=== PATIENT | male | born 1975 | race Caucasian/White ===

== ENCOUNTER 2019-02-25 06:55 | Day surgery (SDC) | payer BC ==
[~2019-02-25 06:55] MED LIST: Buffered Lidocaine 1% SYRIN* 1 ML/SYRINGE INTRADERM ONE; Dexamethasone TAB* 4 MG PO ONE; DiMENhydriNATE IV* 50 MG/ML VIAL IV PUSH PRN; Famotidine IV* 10 MG/ML 2 ML (20 mg) IV ONE; HYDROmorphone INJ1* 1 MG/ML SYRINGE IV PRN; Lactated Ringers 1000 ML Bag* 1,000 ML IV SCH; Naloxone* 0.4 MG/ML 1 ML VIAL IV PRN; Ondansetron ODT TAB* 4 MG PO ONE; PROCHLORPERAZINE INJ 5 MG/ML 2 ML VIAL IV PRN; fentaNYL* 50 MCG/ML 2 ML VIAL (100 MCG VIAL) IV PRN; oxyCODONE TAB* 5 MG TAB PO PRN
[2019-02-25] MEDS ORDERED: ceFAZolin 2 GM PREMIX in ORs 2 GM/50 ML BAG ONE (07:45)
[2019-02-25] MEDS ORDERED: Ondansetron ODT TAB* 4 MG ONE (07:45)
[2019-02-25] MEDS ORDERED: Dexamethasone TAB* 4 MG ONE (07:45)
[2019-02-25] MEDS ORDERED: Famotidine IV* 10 MG/ML 2 ML (20 mg) ONE (07:45)
[2019-02-25] MEDS ORDERED: KETAMINE HCL* 50 MG/ML 10 ML VIAL ONE (08:44)
[2019-02-25] MEDS ORDERED: fentaNYL* 50 MCG/ML 2 ML VIAL (100 MCG VIAL) ONE (08:44)
[2019-02-25] MEDS ORDERED: Midazolam* 1 MG/ML 5 ML VIAL (5 MG) ONE (08:45)
[2019-02-25] MEDS ORDERED: Rocuronium* 10 MG/ML VIAL ONE (08:47)
[2019-02-25] MEDS ORDERED: Bupivacaine 0.25% EPI 200,000* 30 ML SDV ONE (08:51)
[2019-02-25] MEDS ORDERED: Sugammadex * 200 MG/2 ML VIAL IV PUSH ONE (10:57)
[2019-02-25] MEDS ORDERED: Acetaminophen IV 1GM/100ML * 100 ML ONE (10:57)
[2019-02-25] MEDS ORDERED: Ketorolac INJ* 30 MG/ML 1 ML VIAL ONE (10:57)
[2019-02-25] MEDS ORDERED: Lidocaine 2% PF * 5 ML VIAL ONE (10:57)
[2019-02-25] MEDS ORDERED: Propofol* 10 MG/ML 20 ML BTL ONE (10:57)
--- NOTE | 2019-02-25 11:16 | OP ---
Operative Report - Blank - Operative Report Date of Operation: 02/25/19 Note: OPERATIVE REPORT Pre-op: Right inguinal hernia Post-Op: Right indirect inguinal hernia Procedure:Totally extraperitoneal laparoscopic repair of right indirect inguinal hernia Surgeon: MD Arlen Asst: Adrián Hernandez MD Anes: general with local , DrSd Holcombe IVF:1 liter of crystalloid EBL:min Specimen: none Drain: none Wound: 1 Findings: Large indirect right inguinal hernia To PACU
[2019-02-25 12:49] VITALS: BP 130/89
--- NOTE | 2019-02-25 23:31 | OP ---
DATE OF OPERATION: 02/25/19 - [facility] DATE OF : 71 SURGEON: Trevor Mckinley MD. STONE FINISHER: Fatemeh Hernandez MD. ANESTHESIOLOGIST: Dr. Baca. ANESTHESIA: General with local. PRE-OP DIAGNOSIS: Right inguinal hernia. POST-OP DIAGNOSIS: Right indirect inguinal hernia, large. OPERATIVE PROCEDURE: Total extraperitoneal laparoscopic repair of a right indirect inguinal hernia with mesh. ESTIMATED BLOOD LOSS: Minimal. IV FLUIDS: 1 L of crystalloid. WOUND CLASSIFICATION: I. SPECIMENS: None. COMPLICATIONS: None. DRAINS: None. FINDINGS: Large indirect inguinal hernia sac. DESCRIPTION OF PROCEDURE: Written informed consent was obtained, the right groin was marked with indelible ink and preoperative antibiotics were administered. The patient was taken to the operating room, placed in the supine position. Sequential compression devices and a warming blanket were applied. General anesthesia was administered and a Carrizales catheter was inserted. The abdomen and both groin were prepped and draped in the usual sterile fashion. Time-out verification was completed. Initially, 1% lidocaine mixed with 0.25% Marcaine was infiltrated at the midline just below the umbilicus and slowly to the right. A transverse incision was made, carried down to the anterior rectus fascia, which was divided and the medial right rectus muscle was exposed and retracted laterally. The posterior sheath was identified and the retro muscle in this space was developed bluntly using a Yadira clamp inferiorly down the midline towards the pubic tubercle. The space maker balloon was then inserted and using palpation was advanced without difficulty to the pubic tubercle. Under direct vision with a 10-mm camera, the extraperitoneal space was then insufflated using the hand pump to develop the extraperitoneal space. The balloon was then removed and a 12-mm blunt port was inserted and the extraperitoneal space was insufflated with 12 mmHg. The patient was placed in Trendelenburg position. The pubic tubercle and Michael's ligament on the right were identified. The epigastric vessels were in the usual position as I entered the anterior abdominal wall. Two 5-mm ports were placed in the lower midline to commence the dissection. As mentioned, the epigastric vessels were identified as they ascended on to the anterior abdominal wall. The space lateral to this was developed with blunt dissection out to the iliac crest and the iliopubic tract was identified. Laterally, the peritoneal reflection was identified and I retracted this more posteriorly as we moved medially and it was evident that there was a rather large indirect inguinal hernia sac extending down towards the scrotum. With careful dissection and care to prevent injury to the epigastric vessels we were able to separate the sac from the spermatic cord content as I entered the internal ring. I also identified the vas deferens and this was protected from injury throughout. It was apparent that the hernia sac was quite large and redundant and quite adherent and scarred to the surrounding structures that we reduced more from the scrotum. There appear to be a narrowing and at this point, I did inadvertently entered some of the peritoneum where I identified the rent and as it appeared that the sac extended further down into the scrotum and was quite adherent, I made a decision to completely encircle the sac and this was then subsequently divided using a sharp scissors and the more proximal rent in the peritoneum was closed nicely with a 2-0 Vicryl Endoloop. Care was taken obviously to prevent any bowel entrapment from the peritoneal side, but this sac was quite redundant and this closed the peritoneum nicely. Also, the vas deferens was identified and protected from injury throughout the dissection. Once this was complete, we were able to reflect the peritoneum somewhat more medially back into the retroperitoneum in preparation for mesh placement. There did not appear to a femoral or direct hernia. Next, a 10 cm x 15 cm ProGrip Covidien mesh was cut slightly to around its edges and was folded appropriately and placed in the extraperitoneal space. This was self adhering and it was placed to cover the direct and indirect spaces with generous overlap of the anterior abdominal wall, across the midline at the tubercle, and care was taken to place this that there was no peritoneum along the posterior abdominal wall, posterior of the abdomen that may slip down underneath the mesh. The mesh sat nicely and extended out to the iliac crest. Hemostasis was assured. Under direct vision, the pressure was released holding the mesh in place with 2 graspers. The anterior rectus sheath was closed with an interrupted 0 Vicryl suture. The skin at all 3 incisions was approximated with subcuticular 4-0 Vicryl suture. Steri-Strips were applied. The patient tolerated the procedure well and was taken to the recovery room in stable condition. [id number]/[facility] #: [id number] [facility]
== END 2019-02-25 13:04 | disposition home or self-care (01) ==
LOC: OR 06:55
PROVIDERS: ATTEND Surgery
DX: K40.90 Unilateral inguinal hernia, without obstruction or gangrene, not specified as recurrent (principal); J45.909 Unspecified asthma, uncomplicated
CPT/HCPCS: A9270-GY; C1781; J0690; J1885; J2250; J2704; J3010; J8540